=== PATIENT | female | born 1955 | race Caucasian/White ===

== ENCOUNTER 2016-09-11 22:01 | Emergency (ER) | payer OTHER ==
[~2016-09-11] VITALS: Ht 154.9 cm; Wt 74.8 kg
[2016-09-11] MEDS ORDERED: LISINOPRIL10 MG (22:11)
[2016-09-11] MEDS ORDERED: HYDROCHLOROTH12.5 M1 PO (22:12)
[2016-09-11] MEDS ORDERED: TENORMIN25 MG PO (22:12)
[2016-09-11] MEDS ORDERED: PROZAC10 MG PO (22:12)
[2016-09-11] MEDS ORDERED: NEXIUM40 MG PO (22:13)
[2016-09-11] MEDS ORDERED: GABAPENTIN 100100 MG PO (22:14)
[2016-09-11] MEDS ORDERED: FLEXERIL PO (22:24)
[2016-09-11] MEDS ORDERED: PREDNISONE 10 M10 MG PO (22:39)
[2016-09-11] MEDS ORDERED: NORFLEX100 MG PO (22:39)
[2016-09-11 23:37] VITALS: BP 166/72
== END 2016-09-11 23:39 | disposition home or self-care (01) ==
LOC: ER 22:01
DX: G89.29 Other chronic pain (principal); M54.14 Radiculopathy, thoracic region; I10 Essential (primary) hypertension; Z88.8 Allergy status to other drugs, medicaments and biological substances

== ENCOUNTER 2017-10-24 21:04 | Emergency (ER) | payer OTHER ==
[~2017-10-24] VITALS: Ht 152.4 cm; Wt 77.1 kg
[~2017-10-24 21:04] MED LIST: FLEXERIL PO; GABAPENTIN 100100 MG PO; HYDROCHLOROTH12.5 M1 PO; LISINOPRIL10 MG; NEXIUM40 MG PO; NORFLEX100 MG PO; PREDNISONE 10 M10 MG PO; PROZAC10 MG PO; TENORMIN25 MG PO
[2017-10-24] MEDS ORDERED: MEDROLDOSEPACK PO (22:12)
[2017-10-24 22:42] VITALS: BP 187/102
== END 2017-10-24 22:45 | disposition home or self-care (01) ==
LOC: ER 21:04
DX: L25.9 Unspecified contact dermatitis, unspecified cause (principal); I10 Essential (primary) hypertension